=== PATIENT | male | born 1970 | race Caucasian/White ===

== ENCOUNTER 2019-03-18 17:30 | Emergency (ER) | payer OTHER ==
[~2019-03-18] VITALS: Ht 175.3 cm; Wt 115.0 kg
[2019-03-18 17:34] VITALS: BP 154/96; PULSE 98; RESP 18; Ht 175.3 cm; Wt 115.0 kg
[2019-03-18] MEDS ORDERED: KETOROLAC 30 MG INJ IV STA (18:07)
[2019-03-18] MEDS ORDERED: SOD CHLORIDE 0.9% 1,000 ML IV STA (18:07)
[2019-03-18] MEDS ORDERED: DEXAMETHASONE 10 MG/ML 1 ML INJ IV ONE (18:30)
[2019-03-18] MEDS ORDERED: DIAZEPAM 5 MG TAB PO ONE (18:30)
[2019-03-18] MEDS ORDERED: IODIXANOL LOCM 100 ML BTL ONE (19:49)
[2019-03-18] MEDS ORDERED: SOD CHLORIDE 0.9% 100 ML ONE (19:49)
[2019-03-18] MEDS ORDERED: HYDROCODONE/APAP (5/325) TAB PO ONE (20:00)
--- NOTE | 2019-03-18 22:25 | ERD ---
ER Documentation Chief Complaint Chief Complaint BACK PAIN RADIATING TO RT LEG X 1 DAY HPI 48-year-old male presenting with back pain. Patient states he has had a long history of sciatica which is worsened over the last few days. He has not taken any medication he states is worse with movement. He denies any fevers. Patient is also stating he had hematuria developed today. 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 Patient is not complaining of any severe flank pain. He does not have any fevers. Patient has an allergy to ampicillin. Surgical history appendectomy. Social history smokes cigars. ROS All systems reviewed and are negative except as per history of present illness. PMhx/Soc Hx Miscellaneous Medical Probl: Yes (DJD, iga nephropathy, SCIATIC) Hx Alcohol Use: No Hx Substance Use: No Hx Tobacco Use: Yes Smoking Status: Current some day smoker FmHx Family History: No diabetes, No coronary disease, No other Physical Exam Vitals Vital Signs Date Temp Pulse Resp B/P (MAP) Pulse Ox O2 O2 Flow FiO2 Time Delivery Rate 03/18/19 98.6 98 18 154/96 97 17:34 (115) Physical Exam GENERAL: The patient is well-appearing, well-nourished, in no acute distress CHEST: Clear to auscultation bilaterally. There are no rales, wheezes or rhonchi. HEART: Regular rate and rhythm. No murmurs, clicks, rubs or gallops ABDOMEN:Soft, nontender and nondistended. Good bowel sounds. No rebound or guarding. No gross peritonitis. No gross organomegaly or masses. No Kahn sign or McBurney point tenderness. BACK: To palpation over right back extending down buttock. No midline tenderness to lumbar spine. No bony deformities. EXTREMITIES: Equal pulses bilaterally. There is no peripheral clubbing, cyanosis or edema. No focal swelling or erythema. Full range of motion. Grossly neurovascularly intact. NEUROLOGIC: Alert and oriented. Cranial nerves II through XII intact. Motor strength in all 4 extremities with 5 out of 5 strength. Sensation grossly intact. Normal speech and gait SKIN: There is no apparent rash or petechiae. The skin is warm and dry. Result Diagram: 03/18/19 18203/18/191824 Results 24 hrs Laboratory Tests Test 03/18/19 18:25 White Blood Count 6.1 10^3/ul Red Blood Count 5.70 10^6/ul Hemoglobin 16.0 g/dl Hematocrit 48.7 % Mean Corpuscular Volume 85.4 fl Mean Corpuscular Hemoglobin 28.1 pg Mean Corpuscular Hemoglobin Concent 32.9 g/dl Red Cell Distribution Width 15.2 % Platelet Count 356 10^3/UL Mean Platelet Volume 8.5 fl Immature Granulocytes % 0.800 % Neutrophils % 60.8 % Lymphocytes % 21.1 % Monocytes % 12.2 % Eosinophils % 4.4 % Basophils % 0.7 % Nucleated Red Blood Cells % 0.0 /100WBC Immature Granulocytes # 0.050 10^3/ul Neutrophils # 3.7 10^3/ul Lymphocytes # 1.3 10^3/ul Monocytes # 0.7 10^3/ul Eosinophils # 0.3 10^3/ul Basophils # 0.0 10^3/ul Nucleated Red Blood Cells # 0.0 10^3/ul Urine Color YELLOW Urine Clarity CLEAR Urine pH 6.0 Urine Specific [place] 1.028 Urine Ketones NEGATIVE mg/dL Urine Nitrite NEGATIVE mg/dL Urine Bilirubin NEGATIVE mg/dL Urine Urobilinogen 1+ mg/dL Urine Leukocyte Esterase TRACE Hong/ul Urine Microscopic RBC 10 /HPF Urine Microscopic WBC 9 /HPF Urine Mucus FEW /HPF Urine Hemoglobin 1+ mg/dL Urine Glucose NEGATIVE mg/dL Urine Total Protein 2+ mg/dl Sodium Level 141 mmol/L Potassium Level 5.2 mmol/L Chloride Level 106 mmol/L Carbon Dioxide Level 24 mmol/L Anion Gap 11 Blood Urea Nitrogen 18 mg/dl Creatinine 1.37 mg/dl Est Glomerular Filtrat Rate mL/min 56 mL/min Glucose Level 88 mg/dl Calcium Level 9.5 mg/dl Total Bilirubin 0.3 mg/dl Direct Bilirubin 0.00 mg/dl Indirect Bilirubin 0.3 mg/dl Aspartate Amino Transf (AST/SGOT) 41 IU/L Alanine Aminotransferase (ALT/SGPT) 48 IU/L Alkaline Phosphatase 39 IU/L Total Protein 8.0 g/dl Albumin 4.2 g/dl Globulin 3.80 g/dl Albumin/Globulin Ratio 1.10 Lipase 52 U/L Current Medications Medications Dose Sig/Fawn Start Time Status Last (Trade) Ordered Route PRN Stop Time Admin Dose Reason Admin Sodium 1,000 ml @ Q1H STAT 03/18/19 DC 03/18/19 Chloride 1,000 mls/hr IV 18:07 18:47 03/18/19 19:06 Ketorolac 30 mg ONCE STAT 03/18/19 DC 03/18/19 Tromethamine IV 18:07 18:48 (Toradol) 03/18/19 18:10 Diazepam 5 mg ONCE ONCE 03/18/19 DC 03/18/19 (Valium) PO 18:30 18:48 03/18/19 18:31 10 mg ONCE ONCE 03/18/19 DC 03/18/19 Dexamethasone IV 18:30 18:48 (Decadron) 03/18/19 18:31 1 tab ONCE ONCE 03/18/19 DC 03/18/19 Acetaminophen PO 20:00 19:45 / 03/18/19 20:01 Hydrocodone Bitart ([place] (5/325)) IV Flush 10 ml STK-MED 03/18/19 DC (NS 10 ml) ONCE .ROUTE 19:49 03/18/19 19:50 Sodium 100 ml @ ud STK-MED 03/18/19 DC Chloride ONCE .ROUTE 19:49 03/18/19 19:50 Iodixanol 100 ml STK-MED 03/18/19 DC (Visipaque ONCE .ROUTE 19:49 Locm) 03/18/19 19:50 Procedures/MDM ER course: Valium, Toradol and Decadron given in ED. Blood work within normal limits. Urine was concerning for potential infection. CT scan pending. [place] 5/325 given the ED. MDM: 48-year-old male presents with back pain. On review of patient's cures report patient has an extensive narcotic pain medication use and I have concern for seeking behavior. She was given pain medication in the emergency room however I will be unable to discharge patient with continued pain medication. I recommended patient go home and use anti-inflammatories and I would prescribe steroids to help alleviate nerve inflammation however patient eloped. I have low suspicion for cauda equina, discitis or epidural abscess. I watch patient walk without difficulty out of the emergency room. He had a normal gait. I have low suspicion for nephrolithiasis or septic stone. I plan to discharge p atient with antibiotics for potential urine infection however he eloped prior to receiving paperwork. Patient is recommended to follow-up with primary care. All questions answered at discharge. I discussed with patient the importance of following up and obtaining a chronic pain specialist. Departure Diagnosis: Primary Impression: Hematuria Additional Impression: Sciatica Condition: SANIA Manzano PA-C Mar 18, 2019 22:25
== END 2019-03-18 19:52 | disposition left against medical advice (07) ==
LOC: FTE 17:30
DX: M54.41 Lumbago with sciatica, right side (principal); R31.9 Hematuria, unspecified
CPT/HCPCS: 36415; 80053; 81001; 83690; 85025; 96374; J1100; J1885; J7030; Q9967; Z7502; Z7610